=== PATIENT | female | born 1985 | race Caucasian/White ===

== ENCOUNTER → 2016-11-05 | Outpatient (CLI) | payer SELFPAY ==
[2016-11-05 12:44] LABS: CH 31.9; CHCM 36.2; HCT 35.1 % (34.0-46.0); HDW 3.19; HGB 12.6 gm/dL (11.4-16.0); MCH 31.9 pg (25.0-35.0); MCHC 35.9 g/dL (31.0-37.0); MCV 88.8 fL (80.0-100.0); Mean Platelet Volume 6.8; RBC 3.96 m/uL (3.80-5.40); WBC 7.7 k/uL (3.8-10.6)
[2016-11-05 12:59] LABS: Glucose 80 mg/dL (74-99); Non-African American GFR(MDRD) >60 (>60 ml/min/1.73 sqM)
[2016-11-05 13:29] LABS: Hepatitis B Surface Ag Index 0.05
[2016-11-05 19:40] LABS: Treponemal Ab Non-Reactive (Non-Reactive)
== END | disposition home or self-care (01) ==
LOC: LABWHC1 11:37
PROVIDERS: ATTEND Obstetrics & Gynecology
DX: O26.811 Pregnancy related exhaustion and fatigue, first trimester (principal); Z3A.00 Weeks of gestation of pregnancy not specified
CPT/HCPCS: 36415; 82565; 82947; 85027; 86762; 86780; 86850; 86900; 86901; 87340; 87390

== ENCOUNTER 2017-06-08 06:00 | Inpatient (IN) | payer OTHER ==
--- NOTE | 2017-06-07 21:24 | P.HPOB ---
History of Present Illness H&P Date: 06/07/17 Chief Complaint: Induction of labor This is a 31-year-old female 4 para 3 with an estimated date of confinement of 06/08/2017, estimated gestational age of 40-0/7 weeks, who presents to labor and delivery for induction of labor. She admits to good movement. She has been feeling irregular contractions. Her has been complicated by gestational diabetes diet controlled. Her sugars have all been in the normal ranges. She has been getting twice weekly nonstress tests. Her last obstetrical ultrasound approximately 1 month ago showed estimated weight of 5 lbs. 3 oz. or 27th percentile. labs: GC/chlamydia-negative Random glucose-80 Hepatitis B surface antigen-negative Hemoglobin-12.6 Blood type-A+ Antibody screen-negative HIV-nonreactive Rubella-immune Syphilis antibody-nonreactive 1 hour Glucola-174 Three-hour Glucola 1 hour and 2 hour values are high. Group B streptococcus-negative Obstetrical history: . History of 3 vaginal deliveries at term. Her largest child was her last delivery and weighed 9 lbs. 14 oz. Gynecologic history: No history of sexual transmitted diseases. Social history: She is and works as an [employer]. Review of Systems Constitutional: Denies chills, Denies fever Eyes: denies blurred vision, denies pain Ears, nose, mouth and throat: Denies headache, Denies sore throat Cardiovascular: Denies chest pain, Denies shortness of breath Respiratory: Denies cough Gastrointestinal: Reports abdominal pain (Irregular contractions) Genitourinary: Reports pelvic pain, Reports Musculoskeletal: Reports low back pain Integumentary: Denies pruritus, Denies rash Neurological: Denies numbness, Denies weakness Past Medical History Past Medical History: No Reported History Additional Past Medical History / Comment(s): Port wine birthmark History of Any Multi-Drug Resistant Organisms: None Reported Past Surgical History: Breast Surgery (right breast mass, benign, 2006) Additional Past Surgical History / Comment(s): R side Lumpectomy 2006 Past Anesthesia/Blood Transfusion Reactions: No Reported Reaction Past Psychological History: No Psychological Hx Reported Smoking Status: Former smoker Past Alcohol Use History: None Reported Past Drug Use History: None Reported Medications and Allergies Home Medications Medication Instructions Recorded Confirmed Type Cetirizine HCl [Zyrtec] 10 mg PO DAILY PRN 08/05/13 08/05/13 History Mfs-Vgig-Vwddk Acid 1 each PO DAILY 08/05/13 08/05/13 History [-U Capsule] Allergies Allergy/AdvReac Type Severity Reaction Status Date / Time No Known Allergies Allergy Verified 08/05/13 19:00 Exam Osteopathic Statement: *. No significant issues noted on an osteopathic structural exam other than those noted in the History and Physical/Consult. HEENT: Within normal limits Heart: Regular rate and rhythm Lungs: Clear to auscultation bilaterally Abdomen: Cervix: 4 cm/70%/-2 station Extremities: Negative Homans heart tones: 140s by Doppler Assessment and Plan (1) 40 weeks gestation of Status: Acute Code(s): Z3A.40 - 40 WEEKS GESTATION OF SNOMED Code( s): 22132180 (2) Gestational diabetes mellitus (GDM) Status: Acute Code(s): O24.419 - GESTATIONAL DIABETES MELLITUS IN , UNSP CONTROL SNOMED Code(s): 50110074 Plan: Proceed with oxytocin induction of labor. Will monitor blood sugars. Expectant management.
[2017-06-08 06:31] LABS: Glucose,Whole Blood 84 mg/dL (75-99)
[2017-06-08] MEDS ORDERED: OXYTOCIN 10 UNIT/ML 1 ML VIAL IM PRN (06:33)
[2017-06-08] MEDS ORDERED: OXYTOCIN 20 UNITS/1000 ML NS 1,000 ML IV SCH ×2 (06:33→12:17)
[2017-06-08] MEDS ORDERED: LACTATED RINGERS 1,000 ML IV SCH (06:33)
[2017-06-08] MEDS ORDERED: METHYLERGONOVINE 0.2 MG/ML 1 ML AMP IM PRN (06:33)
[2017-06-08] MEDS ORDERED: LIDOCAINE 1% 20 ML VIAL (10MG/ML) FOR IV START INTRADERMA PRN (06:33)
[2017-06-08] MEDS ORDERED: LIDOCAINE 1% (PF) 10 MG/ML (30 ML SDV) SQ PRN (06:33)
[2017-06-08] MEDS ORDERED: CARBOPROST TROMETHAMINE 250 MCG/ML 1 ML AMP IM PRN (06:33)
[2017-06-08] MEDS ORDERED: TERBUTALINE 1 MG/ML VIAL SQ PRN (06:33)
[2017-06-08 06:50] VITALS: BMI 36.2
[2017-06-08 07:11] LABS: Basophils % (A) 0 %; Eosinophils # (A) 0.1 k/uL (0-0.7); Eosinophils % (A) 1 %; HCT 35.4 % (34.0-46.0); HGB 12.2 gm/dL (11.4-16.0); Lymphocytes % (A) 20 %; MCH 30.2 pg (25.0-35.0); MCHC 34.3 g/dL (31.0-37.0); MCV 87.9 fL (80.0-100.0); Mean Platelet Volume 7.7; Monocytes # (A) 0.3 k/uL (0-1.0); Monocytes % (A) 3 %; Neutrophils # (A) 7.8 k/uL (1.3-7.7); Neutrophils % (A) 75 %; Platelet Count 224 k/uL (150-450); RBC 4.03 m/uL (3.80-5.40); RDW 14.1 % (11.5-15.5); WBC 10.4 k/uL (3.8-10.6)
[2017-06-08 08:31] LABS: Glucose,Whole Blood 87 mg/dL (75-99)
[2017-06-08 10:45] LABS: Glucose,Whole Blood 85 mg/dL (75-99)
[2017-06-08] MEDS ORDERED: ZOLPIDEM 5 MG TAB PO PRN (12:17)
[2017-06-08] MEDS ORDERED: WITCH HAZEL 1 EACH MED..PAD TOPICAL PRN (12:17)
[2017-06-08] MEDS ORDERED: BENZOCAINE/MENTHOL SPRAY 1 GM/SPRAY AEROSOL TOPICAL PRN (12:17)
[2017-06-08] MEDS ORDERED: diphenhydrAMINE 50 MG CAP PO PRN (12:17)
[2017-06-08] MEDS ORDERED: diphenhydrAMINE 50 MG/ML 1 ML VIAL IVP PRN ×2 (12:17)
[2017-06-08] MEDS ORDERED: ACETAMINOPHEN TAB 325 MG TAB PO PRN (12:17)
[2017-06-08] MEDS ORDERED: HYDROCORTISONE 2.5% RECTAL CREAM 30 GM TUBE RECTAL PRN (12:17)
[2017-06-08] MEDS ORDERED: diphenhydrAMINE 25 MG CAP PO PRN (12:17)
[2017-06-08] MEDS ORDERED: LANOLIN CREAM 5 GM TUBE TOPICAL PRN (12:17)
[2017-06-08] MEDS ORDERED: SIMETHICONE 80 MG CHEWABLE PO PRN (12:17)
[2017-06-08] MEDS ORDERED: LORATADINE 10 MG TAB PO PRN (12:17)
--- NOTE | 2017-06-08 13:12 | P.PROBDLV ---
Vaginal Delivery Note - . Vaginal Delivery Note: The patient progressed to complete dilation after oxytocin induction of labor and artificial rupture of membranes with clear fluid noted. She pushed for a short while and infant's head came to a crown. Infant's head delivered across the perineum followed immediately by the anterior shoulder. She was unable to stop pushing and therefore nuchal cord times one was reduced around the infant with delivery. Infant was placed on mother's abdomen and then nose and mouth were bulb suctioned. Cord was clamped and cut and then infant was taken to warmer for evaluation. A viable female infant was noted with scores of 9 at 1 minute and 9 at 5 minutes and infant weight of 7 lbs. 2 oz. Placenta delivered shortly thereafter, intact, with a three-vessel cord. Uterus did contract fairly well after oxytocin was given and uterine massage was carried out. Inspection of the perineum revealed a small first-degree perineal laceration. This area was anesthetized with 1% lidocaine and then sutured with 3-0 Vicryl suture in a running locked fashion. Estimated blood loss is approximately 100 mL's. Both mother and infant are in stable condition.
[2017-06-08] MEDS: IBUPROFEN 600 MG TAB PO PRN ×2 (14:08→19:52)
[2017-06-08 14:26] LABS: Hemoglobin A1C 5.1 % (4.0-6.0)
[2017-06-08] MEDS: SENNOSIDES-DOCUSATE SODIUM 1 EACH TAB PO SCH (19:53)
[2017-06-09 07:30] LABS: Basophils % (A) 0 %; Eosinophils # (A) 0.1 k/uL (0-0.7); Eosinophils % (A) 1 %; HCT 33.3 % (34.0-46.0); HGB 11.5 gm/dL (11.4-16.0); Lymphocytes # (A) 2.1 k/uL (1.0-4.8); Lymphocytes % (A) 18 %; MCH 30.5 pg (25.0-35.0); MCHC 34.5 g/dL (31.0-37.0); MCV 88.4 fL (80.0-100.0); Mean Platelet Volume 7.9; Monocytes # (A) 0.4 k/uL (0-1.0); Monocytes % (A) 3 %; Neutrophils # (A) 9.1 k/uL (1.3-7.7); Neutrophils % (A) 77 %; Platelet Count 226 k/uL (150-450); RBC 3.77 m/uL (3.80-5.40); RDW 14.3 % (11.5-15.5); WBC 11.9 k/uL (3.8-10.6)
[2017-06-09] MEDS: SENNOSIDES-DOCUSATE SODIUM 1 EACH TAB PO SCH (08:04)
[2017-06-09 08:26] VITALS: BP 131/80; PULSE 87; RESP 17; TEMP 98
--- NOTE | 2017-06-09 08:38 | P.DS ---
Providers Date of admission: 06/08/17 06:14 Expected date of discharge: 06/09/17 Attending physician: Darlene Yu - Discharge Diagnosis(es) (1) 40 weeks gestation of Current Visit: Yes Status: Acute (2) Gestational diabetes mellitus (GDM) Current Visit: Yes Status: Acute Hospital Course: This is a 31-year-old female 4 para 3 at 40-0/7 weeks who presented for induction of labor. She underwent oxytocin induction of labor and delivered vaginally a viable female with scores of 9 at 1 minute and 9 at 5 minutes and weight of 7 lbs. 2 oz. Nuchal cord times one was noted. Her post course was uncomplicated. She is breast-feeding. Lochia is decreasing. Pain is well-controlled with ibuprofen. Vital signs are stable. Abdomen is soft with fundus firm and nontender. Extremities show negative Homans. Impression is status post vaginal delivery day #1. Plan is to discharge home today. Routine instructions are given. She will be given a prescription for ibuprofen. She has a breast pump at home. She is advised to follow up in the office in 6 weeks. She is advised to call the office if she has any further questions or concerns prior to her appointment time. Procedures: Oxytocin induction of labor Spontaneous vaginal delivery of a viable female Patient Condition at Discharge: Stable Plan - Discharge Summary New Discharge Prescriptions: New Ibuprofen [Motrin] 600 mg PO Q6HR PRN #60 tab PRN Reason: Mild Pain Or Fever >= 100.5 Continue Emg-Yoow-Bfuvn Acid [-U Capsule (formulary)] 1 each PO DAILY Cetirizine HCl [Zyrtec] 10 mg PO DAILY PRN PRN Reason: Allergy Symptoms Rose-3 Fatty Acids/Fish Oil [Fish Oil 1,000 mg Softgel] 1 each PO DAILY Calcium Carbonate [Tums] 500 mg PO QID PRN PRN Reason: reflux Discharge Medication List Cetirizine HCl [Zyrtec] 10 mg PO DAILY PRN 08/05/13 [History] Uax-Zssj-Wtsul Acid [-U Capsule (formulary)] 1 each PO DAILY [History] Calcium Carbonate [Tums] 500 mg PO QID PRN 06/08/17 [History] Rose-3 Fatty Acids/Fish Oil [Fish Oil 1,000 mg Softgel] 1 each PO DAILY [History] Ibuprofen [Motrin] 600 mg PO Q6HR PRN #60 tab 06/09/17 [Rx] Follow up Appointment(s)/Referral(s): Darlene Yu DO [Doctor of Osteopathic Medicine] - 6 Weeks Activity/Diet/Wound Care/Special Instructions: Instructions 1. Do not begin any exercise program for 3 weeks. 2. Do not resume sexual relations for 3 weeks or longer if uncomfortable. 3. You may take tub baths or showers at any time. 4. You may use tampons if desired after 3 weeks. 5. Keep the area of episiotomy (stitches) clean and dry. 6. If you are not nursing, wear a good fitting, supportive bra during the day and limit fluid intake for at least 1 week to prevent breast engorgement. 7. Call the office, [phone], within the next week to make appointment for your 6 week checkup if it has not already been made. 8. Report any of the following occurrences to the doctor promptly: a. Heavy, excessive bleeding b. Chills, fever c. Burning or frequency of urination d. Pain or redness and breasts if nursing e. Increasing pain or swelling in episiotomy (stitches). In addition to the above instructions, the following additional should be followed: 1. No heavy lifting or straining (exercising) until after 6 week checkup. 2. Keep abdominal incision clean and dry: You may wear a dressing if more comfortable. 3. Make office appointment for 10 days after going home or as instructed by her doctor. Discharge Disposition: HOME SELF-CARE
[2017-06-09] MEDS: IBUPROFEN 600 MG TAB PO PRN (11:06)
== END 2017-06-09 13:30 | disposition home or self-care (01) | DRG 775 ==
LOC: 4FBP 06:14
PROVIDERS: ADMIT Obstetrics & Gynecology; ATTEND Obstetrics & Gynecology
PROC: 10E0XZZ Delivery of Products of Conception, External Approach (ICD-10-PCS; principal; 2017-06-08)
PROC: 10907ZC Drainage of Amniotic Fluid, Therapeutic from Products of Conception, Via Natural or Artificial Opening (ICD-10-PCS; principal; 2017-06-08)
PROC: 3E033VJ Introduction of Other Hormone into Peripheral Vein, Percutaneous Approach (ICD-10-PCS; principal; 2017-06-08)
PROC: 0HQ9XZZ Repair Perineum Skin, External Approach (ICD-10-PCS; principal; 2017-06-08)
DX: O48.0 Post-term pregnancy (principal); Z37.0 Single live birth; O24.420 Gestational diabetes mellitus in childbirth, diet controlled; O69.81X0 Labor and delivery complicated by cord around neck, without compression, not applicable or unspecified; O70.0 First degree perineal laceration during delivery; Z3A.40 40 weeks gestation of pregnancy; Z87.891 Personal history of nicotine dependence
CPT/HCPCS: 83036; 85025; 88307

== ENCOUNTER → 2022-01-15 | Outpatient (CLI) | payer SELFPAY ==
--- NOTE | 2022-01-18 17:49 | MM ---
Reason for Exam: Screening (asymptomatic). Patient History: Menarche at age 10. First Full-Term at age 22. Premenopausal. Excisional Biopsy on the Right side. Maternal aunt had breast cancer at or over age 50. Risk Values: Maryan 5 year model risk: 0.6%. NCI Lifetime model risk: 11.2%. Tissue Density: The breast tissue is extremely dense which could obscure a lesion on mammography. Findings: Analyzed By CAD. Pattern appears symmetrical. There are punctate calcifications within the upper outer aspect anterior right breast. Closer evaluation with magnification views is recommended. Scar marker is in this region. This area also correlates with a palpable marker. Patient should return for diagnostic mammography of the right breast to include magnification views in craniocaudal and mediolateral oblique views. Additional evaluation with ultrasound is also recommended at the palpable abnormality. Overall Assessment: Incomplete: need additional imaging evaluation, BI-RAD 0 Management: Diagnostic Mammogram of the right breast. Diagnostic Breast Ultrasound of the right breast. A negative mammogram report should not preclude additional follow up of suspicious palpable abnormalities. Patient should continue monthly self breast exam. A clinical breast exam by your physician is recommended on an annual basis and results should be correlated with mammographic findings. Electronically signed and approved by: Shay Lopez D.O. Radiologis
== END | disposition home or self-care (01) ==
LOC: RADMAMWWP 15:14
PROVIDERS: ATTEND Obstetrics & Gynecology
DX: Z12.31 Encounter for screening mammogram for malignant neoplasm of breast (principal); Z80.3 Family history of malignant neoplasm of breast
CPT/HCPCS: 77063; 77067

== ENCOUNTER → 2022-01-25 | Outpatient (CLI) | payer SELFPAY ==
--- NOTE | 2022-01-25 15:16 | USB ---
Patient History: Menarche at age 10. First Full-Term at age 22. Premenopausal. Excisional Biopsy on the Right side. Maternal aunt had breast cancer at or over age 50. Risk Values: Maryan 5 year model risk: 0.6%. NCI Lifetime model risk: 11.2%. Prior Study Comparison: 01/15/2022 Bilateral MG 3D screening mammo w/cad, [facility]. Findings: The upper outer quadrant of the right breast, the axilla of the right breast and the retroareolar of the right breast were scanned. At the right 10:00 position 4 cm from the nipple there is a slightly hypoechoic mass with irregular borders and internal calcifications measuring 2.0 x 1.0 cm. Tissue diagnosis is recommended. No evidence for axillary adenopathy at this time.. Overall Assessment: Suspicious, BI-RAD 4 Management: Ultrasound Core Biopsy of the right breast. A clinical breast exam by your physician is recommended on an annual basis and results should be correlated with mammographic findings. This exam should not preclude additional follow-up of suspicious palpable abnormalities. Results were given to the patient verbally at the time of exam. Electronically signed and approved by: Evens Pierce M.D. Radiologis
--- NOTE | 2022-01-25 15:17 | MM ---
Reason for Exam: Additional evaluation requested from abnormal screening. Last screening mammogram was performed less than 1 month ago. Patient History: Menarche at age 10. First Full-Term at age 22. Premenopausal. Excisional Biopsy on the Right side. Maternal aunt had breast cancer at or over age 50. Risk Values: Maryan 5 year model risk: 0.6%. NCI Lifetime model risk: 11.2%. Tissue Density: Right: The breast tissue is heterogeneously dense. This may lower the sensitivity of mammography. Findings: Analyzed By CAD. Mass density with internal calcifications upper outer quadrant of the right breast approximately 5 cm from the nipple. Ultrasound is recommended. No additional calcifications noted. Overall Assessment: Incomplete: need additional imaging evaluation, BI-RAD 0 Management: Diagnostic Breast Ultrasound of the right breast. A clinical breast exam by your physician is recommended on an annual basis and results should be correlated with mammographic findings. This exam should not preclude additional follow-up of suspicious palpable abnormalities. Results were given to the patient verbally at the time of exam. Electronically signed and approved by: Evens Pierce M.D. Radiologis
== END | disposition home or self-care (01) ==
LOC: RADMAMWWP 14:21
PROVIDERS: ATTEND Obstetrics & Gynecology
DX: R92.8 Other abnormal and inconclusive findings on diagnostic imaging of breast (principal); Z80.3 Family history of malignant neoplasm of breast
CPT/HCPCS: 77061; 77065

== ENCOUNTER → 2022-02-08 | Day surgery (SDC) | payer SELFPAY ==
--- NOTE | 2022-02-12 08:20 | MM ---
Reason for Exam: Additional evaluation requested from abnormal screening. Last screening mammogram was performed less than 1 month ago. Patient History: Menarche at age 10. First Full-Term at age 22. Premenopausal. Excisional Biopsy on the Right side. Maternal aunt had breast cancer at or over age 50. Risk Values: Maryan 5 year model risk: 0.6%. NCI Lifetime model risk: 11.2%. Prior Study Comparison: 01/15/2022 Bilateral MG 3D screening mammo w/cad, [facility]. 01/25/2022 Right MG 3D work up w/cad RT, [facility]. Tissue Density: Right: The breast tissue is extremely dense which could obscure a lesion on mammography. Pathology Description: Location: 10 o'clock, upper outer quadrant. Marker Left Behind. Needle Type: Celero Cores: 2 Gauge: 12 The procedure of ultrasound guided core biopsy was explained to the patient. Benefits, alternatives, and risks were discussed. An informed consent was then obtained. The patient was placed in supine positioning for imaging and for the procedure. Preprocedure ultrasound redemonstrates oval wider greater than tall 2.2 cm heterogeneous hypoechoic mass at 10:00 position 4 cm distance from nipple. The overlying skin was prepped and draped in usual sterile fashion. Lidocaine is used as anesthetic into the skin and subcutaneous tissue up to area of concern in the right breast. Under ultrasound guidance a vacuum-assisted biopsy gun device was used to obtain 2 core samples. Following this, a biopsy clip was left in lesion. The patient tolerated the procedure well without any immediate complication. The patient was kept in the radiology department for short stay after the procedure and then discharged home in stable condition. Postprocedure mammogram: The patient was transferred to mammography for physician ordered post procedure mammogram for clip placement verification. Clip is in adequate position relative to the palpable abnormality with some calcification corresponding to ultrasound images. Impression: Successful, uncomplicated ultrasound guided core biopsy of area of concern in the right breast, full pathology results to follow. Intermediate index of suspicion noted at time of procedure. Pathology Results: Result: Benign, Fibroadenoma. RIGHT BREAST, 10:00, ULTRASOUND GUIDED NEEDLE CORE BIOPSY: Fibroadenoma. Overall Assessment: Benign Assessment: MG diagnostic mammo RT wo CAD - Right: Benign, BI-RAD 2. Management: Diagnostic Breast Ultrasound of the right breast in 6 months. Electronically signed and approved by: Hernandez Quiros M.D.
== END ==
LOC: RADUSWWP 12:46
PROVIDERS: ATTEND Surgery
DX: D24.1 Benign neoplasm of right breast (principal); R92.8 Other abnormal and inconclusive findings on diagnostic imaging of breast; Z80.3 Family history of malignant neoplasm of breast
CPT/HCPCS: 88305; 77065; 19083; A4648